=== PATIENT | male | born 1970 | race Caucasian/White ===

== ENCOUNTER → 2016-08-13 | Outpatient (CLI) | payer OTHER, BC ==
--- NOTE | 2016-08-13 09:58 | DIAGNOSTIC IMAGING REPORT ---
LEFT KNEE 1 OR 2 VIEWS ROUTINE, RIGHT KNEE 1 OR 2 VIEWS ROUTINE CLINICAL HISTORY: M25.569 Joint pain, [id number] COMPARISON STUDY: None. FINDINGS: No fracture or dislocation within the right left knee. No knee effusion. Soft tissues are unremarkable. Cartilage spaces are maintained for age. IMPRESSION: No significant abnormality within the right or left knee. Electronically signed by: Terry Love M.D. 08/13/2016 9:56 AM Dictated Date/Time: 08/13/2016 9:55 AM
--- NOTE | 2016-08-13 09:58 | DIAGNOSTIC IMAGING REPORT ---
LEFT SHOULDER MIN 2 VIEWS ROUTINE CLINICAL HISTORY: Left shoulder pain. COMPARISON: None FINDINGS: Alignment of the left shoulder is anatomic. There is no fracture or suspicious lesion. There is mild arthritis of the acromioclavicular joint. There is minimal arthritis of the glenohumeral joint. IMPRESSION: 1. No acute fracture or dislocation of the left shoulder. 2. 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 Electronically signed by: Eddi Falcon M.D. 08/13/2016 9:56 AM Dictated Date/Time: 08/13/2016 9:55 AM
--- NOTE | 2016-08-13 09:58 | DIAGNOSTIC IMAGING REPORT ---
LEFT KNEE 1 OR 2 VIEWS ROUTINE, RIGHT KNEE 1 OR 2 VIEWS ROUTINE CLINICAL HISTORY: M25.569 Joint pain, [id number] COMPARISON STUDY: None. FINDINGS: No fracture or dislocation within the right left knee. No knee effusion. Soft tissues are unremarkable. Cartilage spaces are maintained for age. IMPRESSION: No significant abnormality within the right or left knee. Electronically signed by: Terry Love M.D. 08/13/2016 9:56 AM Dictated Date/Time: 08/13/2016 9:55 AM
== END | disposition home or self-care (01) ==
LOC: C.RAD 09:11
PROVIDERS: ATTEND Nurse Practitioner
DX: M25.569 Pain in unspecified knee (principal); M25.512 Pain in left shoulder

== ENCOUNTER → 2017-09-02 | Outpatient (CLI) | payer OTHER, BC ==
[~2017-09-02] MED LIST: ONDA4TAB10 SL
[2017-09-02 17:30] LABS: BASO % 0.5 %; BASO ABS # 0.08 K/uL (0-0.2); EOS % 21.3 %; EOS ABS # 3.16 K/uL (0-0.5); HEMATOCRIT 47.3 % (42-52); HEMOGLOBIN 17.2 g/dL (14.0-18.0); IG# 0.22 K/uL (0.00-0.02); LYMPH ABS # 2.08 K/uL (1.2-3.4); MEAN CELL VOLUME 83.6 fL (80-100); MEAN CORPUSCULAR HEMOGLOBIN 30.4 pg (25-34); MEAN CORPUSCULAR HGB CONC 36.4 g/dl (32-36); MEAN PLATELET VOLUME 9.9 fL (7.4-10.4); MONO % 7.1 %; MONO ABS # 1.05 K/uL (0.11-0.59); NEUT % 55.6 %; NEUT ABS # 8.25 K/uL (1.4-6.5); PLATELET COUNT 202 K/uL (130-400); RED CELL DISTRIBUTION WIDTH CV 13.5 % (11.5-14.5); RED CELL DISTRIBUTION WIDTH SD 40.9 fL (36.4-46.3); WHITE BLOOD COUNT 14.84 K/uL (4.8-10.8)
[2017-09-02 17:47] LABS: ALBUMIN 3.9 gm/dl (3.4-5.0); ALT/SGPT 36 U/L (12-78); AST/SGOT 16 U/L (15-37); BLOOD UREA NITROGEN 20 mg/dl (7-18); CALCIUM 8.3 mg/dl (8.5-10.1); CARBON DIOXIDE 28 mmol/L (21-32); CREATININE 1.03 mg/dl (0.60-1.40); GLUCOSE 94 mg/dl (70-99); POTASSIUM 4.1 mmol/L (3.5-5.1); SODIUM 138 mmol/L (136-145)
[2017-09-02 17:50] LABS: ALKALINE PHOSPHATASE 90 U/L (45-117); TOTAL PROTEIN 7.6 gm/dl (6.4-8.2); TRANSFERRIN 211 mg/dl (200-360)
[2017-09-02 18:26] LABS: LIPASE 83 U/L (73-393)
== END | disposition home or self-care (01) ==
LOC: C.LAB1850 17:01
PROVIDERS: ATTEND Nurse Practitioner Adult Health
DX: R10.13 Epigastric pain (principal); K92.1 Melena

== ENCOUNTER 2017-09-03 05:07 | Emergency (ER) | payer OTHER, BC ==
[~2017-09-03] VITALS: Ht 185.4 cm; Wt 111.3 kg
[2017-09-03 05:08] VITALS: TEMP 36.7; Ht 185.4 cm; Wt 111.3 kg
[2017-09-03] MEDS ORDERED: ONDANSETRON INJ 2 MG/ML 2 ML VIAL IV STA (05:26)
[2017-09-03] MEDS ORDERED: PANTOprazole INJ 40 MG in SYRINGE 0 ML IV ONE (05:30)
[2017-09-03] MEDS ORDERED: SODIUM CHLORIDE 0.9% 1000ML 1,000 ML IV ONE ×2 (05:30)
[2017-09-03] MEDS ORDERED: MoRPHine SULFATE 4 MG/ML 1 ML CARP\\VIAL IV ONE (05:30)
[2017-09-03 05:53] LABS: BASO % 0.4 %; BASO ABS # 0.05 K/uL (0-0.2); EOS % 27.4 %; EOS ABS # 3.64 K/uL (0-0.5); HEMOGLOBIN 16.3 g/dL (14.0-18.0); IG# 0.12 K/uL (0.00-0.02); LYMPH % 15.1 %; LYMPH ABS # 2.01 K/uL (1.2-3.4); MEAN CELL VOLUME 83.5 fL (80-100); MEAN CORPUSCULAR HEMOGLOBIN 29.6 pg (25-34); MEAN CORPUSCULAR HGB CONC 35.4 g/dl (32-36); MEAN PLATELET VOLUME 9.5 fL (7.4-10.4); MONO % 7.4 %; MONO ABS # 0.98 K/uL (0.11-0.59); NEUT % 48.8 %; PLATELET COUNT 182 K/uL (130-400); RED CELL DISTRIBUTION WIDTH CV 13.5 % (11.5-14.5); RED CELL DISTRIBUTION WIDTH SD 41.3 fL (36.4-46.3)
[2017-09-03 06:11] LABS: ALBUMIN 3.5 gm/dl (3.4-5.0); CALCIUM 8.2 mg/dl (8.5-10.1); CREATININE 1.09 mg/dl (0.60-1.40); POTASSIUM 3.9 mmol/L (3.5-5.1)
[2017-09-03 06:14] LABS: TOTAL PROTEIN 7.1 gm/dl (6.4-8.2)
--- NOTE | 2017-09-03 06:57 | EMERGENCY ROOM VISIT NOTE ---
History First contact with patient: 05:13 Chief Complaint: ABDOMINAL PAIN Stated Complaint: UPSET STOMACH,DIARRHEA Nursing Triage Summary: c/o diarrhea since saturday seen by bri and had labs done. c/o contiued diarrhea. History of Present Illness The patient is a 47 year old male who presents to the Emergency Room with complaints of abdominal discomfort and diarrhea that began 4 days ago. The patient estimates having greater than 50 episodes of diarrhea over the past 4 days. He does not have recent travel history or antibiotic use. He does have abdominal cramping. Initially his stool was very dark, and there was concern that it may have included blood. The patient went to his primary care physician yesterday where blood work was obtained and did show an elevated white blood cell count but no significant anemia. The patient does take Aleve and Advil at times for some chronic back pain. He recently restarted a proton pump inhibitor. His abdominal discomfort is diffuse but not focal. No history of abdominal surgery. The patient has not had vomiting but has had some nausea. No chest pain, chest tightness, shortness of breath. No fever. He rates his current discomfort a 4/10. Review of Systems More than 10 systems were reviewed and otherwise negative with the exception of history of present illness. Past Medical/Surgical History Medical Problems: (1) No chronic past medical history Family History Hypertension Social History Smoking Status: Never Smoker Alcohol Use: occasionally Marital Status: Housing Status: lives with family Occupation Status: employed Current/Historical Medications No Active Prescriptions or Reported Meds Physical Exam Vital Signs Date Time Temp Pulse Resp B/P (MAP) Pulse Ox O2 Delivery O2 Flow Rate FiO2 09/03/17 06:04 66 18 138/93 97 Room Air 09/03/17 05:08 36.7 76 16 127/84 96 Room Air Physical Exam VITALS: Vitals are noted on the nurse's note and reviewed by myself. Vital signs stable. GENERAL: Well-developed, well-nourished, white male who appears mildly uncomfortable on presentation., who is in no acute distress and resting comfortably. Patient is cooperative with the examination. MOUTH: Mucous membranes dry. Tonsils are not enlarged. Pharynx without erythema, blood, or exudate. Uvula midline. Airway patent. NECK: Supple without nuchal rigidity. No lymphadenopathy. No thyromegaly. Cervical spine is nontender. HEART: Regular rate and rhythm without murmurs gallops or rubs. LUNGS: Clear to auscultation bilaterally without wheezes, rales or rhonchi. No retractions or accessory muscle use. ABDOMEN: Positive normal bowel sounds x 4. Soft with mild diffuse tenderness. No rebound or guarding. No CVA tenderness. MUSCULOSKELETAL: No muscle atrophy, erythema, or edema noted. Full range of motion in all extremities. NEURO: Patient was alert and oriented to person place and time. CN II through XII grossly intact. Medical Decision & Procedures Laboratory Results 09/03/17 05:40 Red Blood Count 5.51, Mean Corpuscular Volume 83.5, Mean Corpuscular Hemoglobin 29.6, Mean Corpuscular Hemoglobin Concent 35.4, Mean Platelet Volume 9.5, Neutrophils (%) (Auto) 48.8, Lymphocytes (%) (Auto) 15.1, Monocytes (%) (Auto) 7.4, Eosinophils (%) (Auto) 27.4, Basophils (%) (Auto) 0.4, Neutrophils # (Auto ) 6.50, Lymphocytes # (Auto) 2.01, Monocytes # (Auto) 0.98, Eosinophils # (Auto ) 3.64, Basophils # (Auto) 0.05 09/03/17 05:40 Test 09/03/17 05:40 White Blood Count 13.30 K/uL (4.8-10.8) Red Blood Count 5.51 M/uL (4.7-6.1) Hemoglobin 16.3 g/dL (14.0-18.0) Hematocrit 46.0 % (42-52) Mean Corpuscular Volume 83.5 fL (80-100) Mean Corpuscular Hemoglobin 29.6 pg (25-34) Mean Corpuscular Hemoglobin Concent 35.4 g/dl (32-36) Platelet Count 182 K/uL (130-400) Mean Platelet Volume 9.5 fL (7.4-10.4) Neutrophils (%) (Auto) 48.8 % Lymphocytes (%) (Auto) 15.1 % Monocytes (%) (Auto) 7.4 % Eosinophils (%) (Auto) 27.4 % Basophils (%) (Auto) 0.4 % Neutrophils # (Auto) 6.50 K/uL (1.4-6.5) Lymphocytes # (Auto) 2.01 K/uL (1.2-3.4) Monocytes # (Auto) 0.98 K/uL (0.11-0.59) Eosinophils # (Auto) 3.64 K/uL (0-0.5) Basophils # (Auto) 0.05 K/uL (0-0.2) RDW Standard Deviation 41.3 fL (36.4-46.3) RDW Coefficient of Variation 13.5 % (11.5-14.5) Immature Granulocyte % (Auto) 0.9 % Immature Granulocyte # (Auto) 0.12 K/uL (0.00-0.02) Anion Gap 5.0 mmol/L (3-11) Est Creatinine Clear Calc Drug Dose 108.4 ml/min Estimated GFR () 92.5 Estimated GFR (Non- 79.8 BUN/Creatinine Ratio 16.7 (10-20) Calcium Level 8.2 mg/dl (8.5-10.1) Magnesium Level 1.8 mg/dl (1.8-2.4) Total Bilirubin 0.5 mg/dl (0.2-1) Aspartate Amino Transf (AST/SGOT) 19 U/L (15-37) Alanine Aminotransferase (ALT/SGPT) 37 U/L (12-78) Alkaline Phosphatase 88 U/L (45-117) C-Reactive Protein 1.02 mg/dl (0-0.29) Total Protein 7.1 gm/dl (6.4-8.2) Albumin 3.5 gm/dl (3.4-5.0) Globulin 3.6 gm/dl (2.5-4.0) Albumin/Globulin Ratio 1.0 (0.9-2) Lipase 80 U/L (73-393) Medications Administered Medications (Trade) Dose Ordered Sig/Kirstie Route Start Time Stop Time Status Last Admin Dose Admin Sodium Chloride 1,000 ml @ 999 mls/hr Q1H1M ONCE IV 09/03/17 05:30 09/03/17 06:30 DC 09/03/17 05:41 999 MLS/HR Sodium Chloride 1,000 ml @ 999 mls/hr Q1H1M ONCE IV 09/03/17 05:30 09/03/17 06:30 DC 09/03/17 05:30 999 MLS/HR Ondansetron HCl (Zofran Inj) 4 mg NOW STAT IV 09/03/17 05:26 09/03/17 05:32 DC 09/03/17 05:48 4 MG Morphine Sulfate (MoRPHine SULFATE INJ) 4 mg NOW ONCE IV 09/03/17 05:30 09/03/17 05:32 DC 09/03/17 05:49 4 MG Pantoprazole Sodium 40 mg/ Syringe 10 ml @ 5 mls/min NOW ONCE IV 09/03/17 05:30 09/03/17 05:31 DC 09/03/17 06:02 5 MLS/MIN ED Course Physical exam and history were performed. Nursing notes, EMR, and Medication List were personally reviewed. Patient appears to have generalized abdominal discomfort with diarrhea for the past several days. Clinically he appears mildly dehydrated. He did have outpatient blood work performed about 12 hours ago that did reveal an elevated white blood cell count of greater than 14,000. IV access was established and labs are obtained. The patient was hydrated with 2 L normal saline. He was given 4 mg IV morphine and 4 mg IV Zofran. Stool studies were ordered. Because of the patient's discomfort, white blood cell count, and length of symptoms I did elect to order a CT scan with IV and oral contrast. The patient's blood work is as above and was reviewed. He does continue with an elevated white blood cell count of 13,000. He does not have a gross anemia or significant electrolyte imbalance. Lipase and transaminases are not diagnostic. The patient did feel improved after hydration and medication here in the department. The patient remained in stable condition until the time of shift change. The case was discussed with Ismael Wheatley PA-C at this time. Stool studies and CT scan is pending. At last check the patient remained in stable and comfortable condition. Please see Mr. Wheatley's dictation for further patient course, plan, and disposition. The chart was completed utilizing [employer] Speech Voice Recognition Software. Grammatical errors, random word insertions, pronoun errors, and incomplete sentences are an occasional consequence of this system due to software limitations, ambient noise, and hardware issues. Any formal questions or concerns about the content, text, or information contained within the body of this dictation should be directly addressed to the provider for clarification. . Medical Decision Differential diagnosis: Etiologies such as viral or foodborne illness, ischemic colitis, inflammatory bowel disease, appendicitis, diverticulitis, PUD, biliary pathology, UTI, pancreatitis, obstruction, mesenteric ischemia, aortic pathology, infections, renal colic, as well as others were entertained. Impression Primary Impression: Generalized abdominal pain Additional Impression: Diarrhea Departure Information Prescriptions No Active Prescriptions or Reported Meds Referrals Luis Mckay M.D. (PCP) Patient Instructions [facility] Problem Qualifiers
--- NOTE | 2017-09-03 07:12 | EMERGENCY ROOM VISIT NOTE ---
History First contact with patient: 06:57 Chief Complaint: ABDOMINAL PAIN Stated Complaint: UPSET STOMACH,DIARRHEA Nursing Triage Summary: c/o diarrhea since saturday seen by saturday and had labs done. c/o contiued diarrhea. History of Present Illness Case was signed out to me at shift change, 0700 hrs. on September 03, 2017. Please refer to Justin Palomares PA-C note for the patient's initial evaluation to include history, review of systems, physical examination and MDM to the time of sign out. Review of Systems Case was signed out to me at shift change, 0700 hrs. on September 03, 2017. Please refer to Justin Palomares PA-C note for the patient's initial evaluation to include history, review of systems, physical examination and MDM to the time of sign out. Past Medical/Surgical History Medical Problems: (1) No chronic past medical history Family History Hypertension Social History Smoking Status: Never Smoker Alcohol Use: occasionally Marital Status: Housing Status: lives with family Occupation Status: employed Current/Historical Medications Scheduled Ondasetron Odt (Zofran Odt), 4 MG SL Q6H Allergies Coded Allergies: Penicillins (Unverified Allergy, Intermediate, RASH, 09/03/17) Amoxicillin (Verified Allergy, Unknown, unknown, 09/03/17) Clavulanic Acid (Verified Allergy, Unknown, unknown, 09/03/17) Uncoded Allergies: DUST & MOLD (Allergy, Intermediate, SINUS CONGESTION, ITCHY EYES, 11/01/13) Physical Exam Vital Signs Date Time Temp Pulse Resp B/P (MAP) Pulse Ox O2 Delivery O2 Flow Rate FiO2 09/03/17 09:52 61 137/84 96 Room Air 09/03/17 08:31 57 113/69 95 Room Air 09/03/17 06:04 66 18 138/93 97 Room Air 09/03/17 05:08 36.7 76 16 127/84 96 Room Air Physical Exam Case was signed out to me at shift change, 0700 hrs. on September 03, 2017. Please refer to Justin Palomares PA-C note for the patient's initial evaluation to include history, review of systems, physical examination and MDM to the time of sign out. Medical Decision & Procedures ER Provider Diagnostic Interpretation: CT OF THE ABDOMEN AND PELVIS WITH CONTRAST CLINICAL HISTORY: Abdominal pain and diarrhea. COMPARISON STUDY: CT of the abdomen and pelvis January 23, 2015. TECHNIQUE: Following IV administration of 94 mL of Optiray-320, axial images of the abdomen and pelvis were obtained from the lung bases to the proximal femurs. Images were reviewed in the axial, sagittal, and coronal planes. IV contrast was administered without complication. A dose lowering technique was utilized adhering to the principles of ALARA. Oral contrast was administered. CT DOSE: 824.55 mGy.cm FINDINGS: Lung bases are clear. The liver, spleen, adrenal glands, right kidney and pancreas are normal. A 1.7 cm cyst within the upper pole the left kidney is noted. There is no hydronephrosis or [place] ureter. The appendix is normal. There is no evidence for a bowel obstruction. There are scattered colonic diverticula without evidence for acute diverticulitis. Note is made of mild mesenteric infiltration associated with several left mid abdominal small bowel loops. There may be mild small bowel wall thickening. A few prominent mesenteric lymph nodes may be reactive. There is no free air or abscess. A fat-containing left inguinal hernia is noted. There are no suspicious osseous lesions. IMPRESSION: 1. Mild mesenteric infiltration associated with several left mid abdominal small bowel loops with possible mild small bowel wall thickening. The findings represent a nonspecific enteritis which is likely infectious in etiology. No free air or abscess. 2. No bowel obstruction. Normal appendix. Electronically signed by: Eddi Falcon M.D. 09/03/2017 9:05 AM Dictated Date/Time: 09/03/2017 8:51 AM Laboratory Results 09/03/17 05:40 Red Blood Count 5.51, Mean Corpuscular Volume 83.5, Mean Corpuscular Hemoglobin 29.6, Mean Corpuscular Hemoglobin Concent 35.4, Mean Platelet Volume 9.5, Neutrophils (%) (Auto) 48.8, Lymphocytes (%) (Auto) 15.1, Monocytes (%) (Auto) 7.4, Eosinophils (%) (Auto) 27.4, Basophils (%) (Auto) 0.4, Neutrophils # (Auto ) 6.50, Lymphocytes # (Auto) 2.01, Monocytes # (Auto) 0.98, Eosinophils # (Auto ) 3.64, Basophils # (Auto) 0.05 09/03/17 05:40 Test 09/03/17 05:40 09/03/17 06:26 09/03/17 06:50 09/03/17 10:10 White Blood Count 13.30 K/uL (4.8-10.8) Red Blood Count 5.51 M/uL (4.7-6.1) Hemoglobin 16.3 g/dL (14.0-18.0) Hematocrit 46.0 % (42-52) Mean Corpuscular Volume 83.5 fL (80-100) Mean Corpuscular Hemoglobin 29.6 pg (25-34) Mean Corpuscular Hemoglobin Concent 35.4 g/dl (32-36) Platelet Count 182 K/uL (130-400) Mean Platelet Volume 9.5 fL (7.4-10.4) Neutrophils (%) (Auto) 48.8 % Lymphocytes (%) (Auto) 15.1 % Monocytes (%) (Auto) 7.4 % Eosinophils (%) (Auto) 27.4 % Basophils (%) (Auto) 0.4 % Neutrophils # (Auto) 6.50 K/uL (1.4-6.5) Lymphocytes # (Auto) 2.01 K/uL (1.2-3.4) Monocytes # (Auto) 0.98 K/uL (0.11-0.59) Eosinophils # (Auto) 3.64 K/uL (0-0.5) Basophils # (Auto) 0.05 K/uL (0-0.2) RDW Standard Deviation 41.3 fL (36.4-46.3) RDW Coefficient of Variation 13.5 % (11.5-14.5) Immature Granulocyte % (Auto) 0.9 % Immature Granulocyte # (Auto) 0.12 K/uL (0.00-0.02) Erythrocyte Sedimentation Rate 8 mm/hr (0-14) Anion Gap 5.0 mmol/L (3-11) Est Creatinine Clear Calc Drug Dose 108.4 ml/min Estimated GFR () 92.5 Estimated GFR (Non- 79.8 BUN/Creatinine Ratio 16.7 (10-20) Calcium Level 8.2 mg/dl (8.5-10.1) Magnesium Level 1.8 mg/dl (1.8-2.4) Total Bilirubin 0.5 mg/dl (0.2-1) Aspartate Amino Transf (AST/SGOT) 19 U/L (15-37) Alanine Aminotransferase (ALT/SGPT) 37 U/L (12-78) Alkaline Phosphatase 88 U/L (45-117) C-Reactive Protein 1.02 mg/dl (0-0.29) Total Protein 7.1 gm/dl (6.4-8.2) Albumin 3.5 gm/dl (3.4-5.0) Globulin 3.6 gm/dl (2.5-4.0) Albumin/Globulin Ratio 1.0 (0.9-2) Lipase 80 U/L (73-393) Bedside Lactic Acid Venous 0.72 mmol/L (0.90-1.70) Urine Color DK YELLOW Urine Appearance CLEAR (CLEAR) Urine pH 5.0 (4.5-7.5) Urine Specific [place] 1.028 (1.000-1.030) Urine Protein NEG (NEG) Urine Glucose (UA) NEG (NEG) Urine Ketones NEG (NEG) Urine Occult Blood NEG (NEG) Urine Nitrite NEG (NEG) Urine Bilirubin NEG (NEG) Urine Urobilinogen NEG (NEG) Urine Leukocyte Esterase NEG (NEG) Date/Time Source Procedure Growth Status 09/03/17 10:10 Stool C.difficile Toxin B Gene (PCR) - Final No C. difficile toxin B gene detected Complete Medications Administered Medications (Trade) Dose Ordered Sig/Kirstie Route Start Time Stop Time Status Last Admin Dose Admin Sodium Chloride 1,000 ml @ 999 mls/hr Q1H1M ONCE IV 09/03/17 05:30 09/03/17 06:30 DC 09/03/17 05:41 999 MLS/HR Sodium Chloride 1,000 ml @ 999 mls/hr Q1H1M ONCE IV 09/03/17 05:30 09/03/17 06:30 DC 09/03/17 05:30 999 MLS/HR Ondansetron HCl (Zofran Inj) 4 mg NOW STAT IV 09/03/17 05:26 09/03/17 05:32 DC 09/03/17 05:48 4 MG Morphine Sulfate (MoRPHine SULFATE INJ) 4 mg NOW ONCE IV 09/03/17 05:30 09/03/17 05:32 DC 09/03/17 05:49 4 MG Pantoprazole Sodium 40 mg/ Syringe 10 ml @ 5 mls/min NOW ONCE IV 09/03/17 05:30 09/03/17 05:31 DC 09/03/17 06:02 5 MLS/MIN Medical Decision Patient was seen and evaluated as above he presents to us today with 4 days of diarrhea and was unable to give a stool sample for quite some time. Case was signed out to me pending CT of the abdomen and pelvis. He was reevaluated and was resting comfortably. He declined any further pain medication. His nausea subsided. CT scan was obtained of the abdomen and pelvis and there is suggestion of enteritis. He was given food here in an attempt to produce stool sample. This suggests Mild mesenteric infiltration associated with several left mid abdominal small bowel loops with possible mild small bowel wall thickening and these findings represent a nonspecific enteritis which is likely infectious in etiology. Stool culture pending. Patient did have some difficulty providing stool sample. He was able to finally provide sample and no C. difficile was found. Stool culture pending. CBC reveals leukocytosis of 13.3. No anemia. Metabolic panel reveals no evidence of kidney or liver failure. Patient's lactic acid is not elevated. CRP slightly elevated. Urine negative. Stool was slightly heme positive however I favor this to likely be from the enteritis. He is to observe conservative management and we will await cultures. He was feeling well. He was able tolerate p.o. fluids and food. He is to follow with the family doctor or return with worsening. He will be given Zofran for nausea. The patient was educated upon management, had questions answered prior to discharge, and was discharged home in good condition. Case was discussed with the attending physician. In the evaluation and treatment of this patient the following differential diagnoses were entertained: Appendicitis, diverticulitis, colitis, mesenteric ischemia, among others. Impression Primary Impression: Generalized abdominal pain Additional Impression: Diarrhea Departure Information Dispostion Home / Self-Care Condition GOOD Prescriptions Ondasetron Odt (ZOFRAN ODT) 4 Mg Tab 4 MG SL Q6H for Nausea, #12 TAB Prov: Ismael Wheatley PA-C 09/03/17 Referrals Luis Mckay M.D. (PCP) Patient Instructions ED Diet [place], [facility] Additional Instructions You have been treated in the Emergency Department your Abdominal Pain. Laboratory results and imaging studies have ruled out any emergent causes for your abdominal pain which would warrant admission or surgery. You have been prescribed Zofran to be used for any nausea or vomiting. Take as prescribed. For pain control, you can use the following [id number] medicines (if >12 yo): - Regular strength (325mg/tab) Tylenol (acetaminophen) 2 tabs every 4-6 hours as needed. Do not exceed 12 tablets in a 24 hour period. Avoid taking more than 3 grams (3000 mg) of Tylenol per day. This includes any other sources of acetaminophen you may take on a regular basis. - Regular strength (200 mg/tab) Advil (ibuprofen) 1-2 tabs every 4-6 hours as needed. Do not exceed a dose of 3200 mg per day. Drink plenty of water and stay well hydrated. As with any trip to the Emergency Department, you should follow-up with your Primary Care Provider from today's visit. Return to the emergency department if your symptoms persist despite treatment plan outlined above or if the following symptoms occur: increased fevers, chills , worsening nausea/vomiting, blood in your stool or urine. Please call back here in 2 days to check on your stool culture results. It is [phone]. CT OF THE ABDOMEN AND PELVIS WITH CONTRAST CLINICAL HISTORY: Abdominal pain and diarrhea. COMPARISON STUDY: CT of the abdomen and pelvis January 23, 2015. TECHNIQUE: Following IV administration of 94 mL of Optiray-320, axial images of the abdomen and pelvis were obtained from the lung bases to the proximal femurs. Images were reviewed in the axial, sagittal, and coronal planes. IV contrast was administered without complication. A dose lowering technique was utilized adhering to the principles of ALARA. Oral contrast was administered. CT DOSE: 824.55 mGy.cm FINDINGS: Lung bases are clear. The liver, spleen, adrenal glands, right kidney and pancreas are normal. A 1.7 cm cyst within the upper pole the left kidney is noted. There is no hydronephrosis or [place] ureter. The appendix is normal. There is no evidence for a bowel obstruction. There are scattered colonic diverticula without evidence for acute diverticulitis. Note is made of mild mesenteric infiltration associated with several left mid abdominal small bowel loops. There may be mild small bowel wall thickening. A few prominent mesenteric lymph nodes may be reactive. There is no free air or abscess. A fat-containing left inguinal hernia is noted. There are no suspicious osseous lesions. IMPRESSION: 1. Mild mesenteric infiltration associated with several left mid abdominal small bowel loops with possible mild small bowel wall thickening. The findings represent a nonspecific enteritis which is likely infectious in etiology. No free air or abscess. 2. No bowel obstruction. Normal appendix. Problem Qualifiers
--- NOTE | 2017-09-03 09:07 | DIAGNOSTIC IMAGING REPORT ---
CT OF THE ABDOMEN AND PELVIS WITH CONTRAST CLINICAL HISTORY: Abdominal pain and diarrhea. COMPARISON STUDY: CT of the abdomen and pelvis January 23, 2015. TECHNIQUE: Following IV administration of 94 mL of Optiray-320, axial images of the abdomen and pelvis were obtained from the lung bases to the proximal femurs. Images were reviewed in the axial, sagittal, and coronal planes. IV contrast was administered without complication. A dose lowering technique was utilized adhering to the principles of ALARA. Oral contrast was administered. CT DOSE: 824.55 mGy.cm FINDINGS: Lung bases are clear. The liver, spleen, adrenal glands, right kidney and pancreas are normal. A 1.7 cm cyst within the upper pole the left kidney is noted. There is no hydronephrosis or [place] ureter. The appendix is normal. There is no evidence for a bowel obstruction. There are scattered colonic diverticula without evidence for acute diverticulitis. Note is made of mild mesenteric infiltration associated with several left mid abdominal small bowel loops. There may be mild small bowel wall thickening. A few prominent mesenteric lymph nodes may be reactive. There is no free air or abscess. A fat-containing left inguinal hernia is noted. There are no suspicious osseous lesions. IMPRESSION: 1. Mild mesenteric infiltration associated with several left mid abdominal small bowel loops with possible mild small bowel wall thickening. The findings represent a nonspecific enteritis which is likely infectious in etiology. No free air or abscess. 2. No bowel obstruction. Normal appendix. Electronically signed by: Eddi Falcon M.D. 09/03/2017 9:05 AM Dictated Date/Time: 09/03/2017 8:51 AM
[2017-09-03 09:52] VITALS: BP 137/84; PULSE 61; O2SAT 96
[2017-09-03] MEDS ORDERED: ONDA4TAB10 SL (10:07)
== END 2017-09-03 10:22 | disposition home or self-care (01) ==
LOC: C.EDB 05:08
DX: R19.7 Diarrhea, unspecified (principal); Z88.0 Allergy status to penicillin; Z88.1 Allergy status to other antibiotic agents; Z91.048 Other nonmedicinal substance allergy status

== ENCOUNTER → 2017-09-09 | Outpatient (CLI) | payer OTHER, BC ==
[2017-09-09 16:43] LABS: HEMATOCRIT 43.2 % (42-52); HEMOGLOBIN 14.9 g/dL (14.0-18.0); MEAN CORPUSCULAR HGB CONC 34.5 g/dl (32-36); MEAN PLATELET VOLUME 10.4 fL (7.4-10.4); PLATELET COUNT 169 K/uL (130-400); RED CELL DISTRIBUTION WIDTH CV 13.6 % (11.5-14.5); RED CELL DISTRIBUTION WIDTH SD 41.6 fL (36.4-46.3); WHITE BLOOD COUNT 7.22 K/uL (4.8-10.8)
== END | disposition home or self-care (01) ==
LOC: C.LABBFT 12:05
PROVIDERS: ATTEND Nurse Practitioner Adult Health
DX: K52.9 Noninfective gastroenteritis and colitis, unspecified (principal); D72.829 Elevated white blood cell count, unspecified

== ENCOUNTER → 2017-09-17 | Day surgery (SDC) | payer OTHER, BC ==
[2017-09-12 09:40] VITALS: Ht 185.4 cm; Wt 109.1 kg
[~2017-09-17] VITALS: Ht 185.4 cm; Wt 109.1 kg
[~2017-09-17] MED LIST changes: +ATROPINE SULFATE 0.1 MG/ML 5ML SYR IV PRN; +CPR/500 PO; +EpHEDrine SULFATE INJ 50 MG/ML AMP IV PRN; +FENTANYL CITRATE INJ 50 MCG/1 ML 2 ML VIAL ONE; +LIDOCAINE HCL 2% 2 ML VIAL (20MG/ML) ONE; +MIDAZOLAM HCL 1 MG/ML 2ML VIAL ONE; +MISCCAP80 PO; -ONDA4TAB10 SL; +PANT40TA PO; +PROPOFOL IV EMULSION 10 MG/ML 20 ML VIAL ONE; +SODIUM CHLORIDE 0.9% 500ML 500 ML IV ONE
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
[2017-09-17 12:21] VITALS: TEMP 36.6
--- NOTE | 2017-09-17 13:30 | Discharge Instructions ---
Endoscopy Patient Instructions Date / Procedure(s) Performed September 17, 2017. EGD Allergy Information Coded Allergies: Penicillins (Unverified Allergy, Intermediate, RASH, 09/17/17) Amoxicillin (Verified Allergy, Unknown, unknown, 09/17/17) Clavulanic Acid (Verified Allergy, Unknown, unknown, 09/17/17) Uncoded Allergies: DUST & MOLD (Allergy, Intermediate, SINUS CONGESTION, ITCHY EYES, 11/01/13) Discharge Date / Findings September 17, 2017. Gastritis s/p biopsies Medication Instructions OK to resume all medications today as prescribed Reported Home Medications Medications Dose Route/Sig Max Daily Dose Days Date Category Probiotic (Probiotic Product) 1 Cap Cap 1 Cap PO BID 09/12/17 Reported Protonix (Pantoprazole Sodium) 40 Mg Tab 40 Mg PO BID 09/12/17 Reported Provider Instructions Activity Restrictions - No exercising or heavy lifting for 24 hours. - Do not drink alcohol the day of the procedure. - Do not drive a car or operate machinery until the day after the procedure. - Do not make any important decisions or sign important papers in 24 hours after the procedure. Following Day: - Return to full activity which may include returning to work/school. Diet Start your diet with liquids and light foods (jello, soup, juice, toast). Then eat your usual diet if not nauseated. Treatment For Common After Affects For mild abdominal pain, bloating, or excessive gas: - Rest - Eat lightly - Lie on right side Follow-Up Information Follow-up with Dr. Luis Mckay as scheduled Anesthesia Information What You Should Know You have had a procedure that required some medicine to reduce anxiety and discomfort. This treatment is called moderate sedation. After receiving the treatment, you may be sleepy, but you will be able to breathe on your own. The effects of the treatment may last for several hours. Follow these instructions along with Activity/Diet recommendations noted above: * Do NOT do anything where dizziness or clumsiness would be dangerous. * Rest quietly at home today, then you can be up and about tomorrow. * Have a responsible person stay with you the rest of today. * You may have had an I.V. today. If so, you may take the dressing off later today. Recommendations Call your doctor if: * Trouble breathing * Continuous vomiting for more than 24 hours * Temperature above 101 degrees * Severe abdominal pain or bloating * Pain not relieved by pain medicine ordered * There is increased drainage or redness from any incision * A large amount of rectal bleeding greater than 2-3 tablespoons. (If you had a polyp/s removed or have hemorrhoids, a small amount of blood - from the rectum is to be expected.) * You have any unanswered questions or concerns. IN THE EVENT OF A SERIOUS EMERGENCY, GO TO THE NEAREST EMERGENCY ROOM Your discharge instructions were prepared by provider Mau Garcia. Patient Instructions Signature Page Tacho Oneill Patient (or Guardian) Signature/Date: I have read and understand the instructions given to me by my caregivers. Caregiver/RN/Doctor Signature/Date: The above-named patient and/or guardian has received patient instructions on this date. + Original Patient Signature Page (only) stays with chart. Please make copy for patient.
--- NOTE | 2017-09-17 13:32 | GI REPORT ---
Patient Name: Tacho Oneill Procedure Date: 09/17/2017 12:55 PM Date of : 1970 Admit Type: Outpatient Age: 47 Gender: Male Attending MD: Mau Garcia DO Procedure: Upper GI endoscopy Providers: Mau Garcia DO Referring MD: Yolette Wolff Indications: Epigastric abdominal pain, Melena, Diarrhea Medicines: Monitored Anesthesia Care Complications: No immediate complications. Estimated Blood Loss: Estimated blood loss: none. Procedure: Pre-Anesthesia Assessment: - Prior to the procedure, a History and Physical was performed, and patient medications and allergies were reviewed. The patient's tolerance of previous anesthesia was also reviewed. The risks and benefits of the procedure and the sedation options and risks were discussed with the patient. All questions were answered, and informed consent was obtained. Prior Anticoagulants: The patient has taken no previous anticoagulant or antiplatelet agents. ASA Grade Assessment: II - A patient with mild systemic disease. After reviewing the risks and benefits, the patient was deemed in satisfactory condition to undergo the procedure. After obtaining informed consent, the endoscope was passed under direct vision. Throughout the procedure, the patient's blood pressure, pulse, and oxygen saturations were monitored continuously. The Scope was introduced through the mouth, and advanced to the second part of duodenum. The upper GI endoscopy was accomplished without difficulty. The patient tolerated the procedure well. Findings: The esophagus was normal. Localized moderate inflammation characterized by erythema was found in the gastric antrum. Biopsies were taken with a cold forceps for histology. The examined duodenum was normal. Impression: - Normal esophagus. - Gastritis. Biopsied. - Normal examined duodenum. Recommendation: - Resume previous diet. - Continue present medications. - Await pathology results. - Return to primary care physician as previously scheduled. Mau Garcia DO 09/17/2017 1:32:36 PM This report has been signed electronically. Note Initiated On: 09/17/2017 12:55 PM Number of Addenda: 0 I attest to the content of the Intraoperative Record and orders documented therein, exceptions below {[id number]}
--- NOTE | 2017-09-17 13:44 | Anesthesiology Progress Note ---
Anesthesia Post Op Note Date & Time September 17, 2017 at 13:43 Vital Signs Pain Intensity: 0 Vital Signs Past 12 Hours Date Time Temp Pulse Resp B/P (MAP) Pulse Ox O2 Delivery O2 Flow Rate FiO2 09/17/17 13:34 66 16 120/87 (98) 97 Room Air 09/17/17 13:19 71 16 112/74 (87) 94 Room Air 09/17/17 12:21 36.6 66 16 111/81 (91) 96 Room Air Notes Mental Status: alert / awake / arousable, participated in evaluation Pt Amnestic to Procedure: Yes Nausea / Vomiting: adequately controlled Pain: adequately controlled Airway Patency, RR, SpO2: stable & adequate BP & HR: stable & adequate Hydration State: stable & adequate Anesthetic Complications: no major complications apparent
[2017-09-17 13:49] VITALS: BP 119/87; PULSE 60; O2SAT 98
== END | disposition home or self-care (01) ==
LOC: C.GI 12:04
PROVIDERS: ATTEND Internal Medicine
DX: K92.1 Melena (principal); K29.50 Unspecified chronic gastritis without bleeding; R10.9 Unspecified abdominal pain; R19.7 Diarrhea, unspecified; K21.9 Gastro-esophageal reflux disease without esophagitis; Z88.0 Allergy status to penicillin; Z88.1 Allergy status to other antibiotic agents; Z88.8 Allergy status to other drugs, medicaments and biological substances

== ENCOUNTER 2022-05-06 15:30 | Observation (INO) ==
[2022-05-06] MEDS ORDERED: ONDANSETRON INJ 2 MG/ML 2 ML VIAL IV STA (15:37)
[2022-05-06] MEDS ORDERED: SODIUM CHLORIDE 0.9% 1000ML 500 ML IV ONE (15:37)
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
[2022-05-06 16:28] LABS: Basophils # (auto) 0.05 K/uL (0-0.2); Basophils % (auto) 0.5 %; Eosinophils # (auto) 0.15 K/uL (0-0.50); Eosinophils % (auto) 1.4 %; Hematocrit (blood only) 44.6 % (40.1-51.0); Hemoglobin 15.3 g/dl (14.0-18.0); Immature Granulocytes # (auto) 0.11 K/uL (0.00-0.02); Immature Granulocytes % (auto) 1.1 %; Lymphocytes # (auto) 1.86 K/uL (1.2-3.4); Lymphocytes % (auto) 17.9 %; Mean Corpuscular Hemoglobin 29.7 pg (25.0-34.0); Mean Corpuscular Hgb Conc 34.3 g/dL (32.0-36.0); Mean Corpuscular Volume 86.6 fL (80.0-100.0); Mean Platelet Volume 10.1 fL (9.4-12.4); Monocytes # (auto) 0.81 K/uL (0.24-0.82); Monocytes % (auto) 7.8 %; Neutrophils # (auto) 7.42 K/uL (1.4-6.5); Neutrophils % (auto) 71.3 %; Platelet Count 194 K/uL (130-400); RDW Coefficient of Variation 13.2 % (11.5-14.5); RDW Standard Deviation 41.1 fL (36.4-46.3); Red Blood Count 5.15 M/uL (4.63-6.08)
[2022-05-06 16:50] LABS: Albumin Globulin Ratio 1.4 (0.9-2); Albumin Level 4.3 gm/dl (3.4-5.0); BUN Creatinine Ratio 22.2 (10-20); Bilirubin,Total 0.4 mg/dl (0.2-1.0); Calcium 9.1 mg/dl (8.5-10.1); Creatinine Clr Calc Pharmacy 98.3 ml/min; Est GFR (Non-African American) 70.8 ml/min; Potassium 4.4 mmol/L (3.5-5.1); Total Protein 7.3 gm/dl (6.0-8.3)
[2022-05-06 16:54] LABS: Troponin I High Sensitivity 23.8 pg/ml (0-20)
[2022-05-06] MEDS ORDERED: ASPIRIN CHEW 324 MG PO STA (17:21)
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
[2022-05-06] MEDS ORDERED: ALUMINUM/MAGNESIUM SUSP 30 ML UDC PO PRN (20:53)
[2022-05-06] MEDS ORDERED: AZITHROMYCIN 250 MG TAB PO ONE (20:53)
[2022-05-06] MEDS ORDERED: NON-FORMULARY MEDICATION (Acetaminophen [Tylenol Arthritis Pain] 650 mg tablet extended re PO SCH (20:53)
[2022-05-06] MEDS ORDERED: hydrALAZINE HCL 20 MG/ML VIAL IV PRN (20:53)
[2022-05-06] MEDS ORDERED: ONDANSETRON INJ 2 MG/ML 2 ML VIAL IV PRN (20:53)
[2022-05-06] MEDS ORDERED: ACETAMINOPHEN 325 MG TAB PO PRN (20:53)
[2022-05-06] MEDS ORDERED: LORATADINE 10 MG TAB PO ONE (20:53)
[2022-05-06] MEDS ORDERED: COUGH DROP (SUGAR FREE) LOZ 24 LOZ/1 BOX BUCCAL STA (22:30)
[2022-05-06] MEDS ORDERED: MELATONIN 3 MG TAB PO PRN (22:30)
[2022-05-06] MEDS: FLUTICASONE PROPIONATE NA SPR 16 GM BTL SCH (22:48)
[2022-05-07 07:02] LABS: Hematocrit (blood only) 41.8 % (40.1-51.0); Hemoglobin 14.6 g/dl (14.0-18.0); Mean Corpuscular Hemoglobin 29.9 pg (25.0-34.0); Mean Corpuscular Hgb Conc 34.9 g/dL (32.0-36.0); Mean Corpuscular Volume 85.5 fL (80.0-100.0); Mean Platelet Volume 9.9 fL (9.4-12.4); Platelet Count 182 K/uL (130-400); RDW Coefficient of Variation 13.2 % (11.5-14.5); RDW Standard Deviation 40.7 fL (36.4-46.3); Red Blood Count 4.89 M/uL (4.63-6.08); White Blood Count 9.87 K/ul (4.8-10.8)
[2022-05-07 07:50] LABS: Calcium 8.4 mg/dl (8.5-10.1); Chol HDL Ratio 4.6 (0-5); Creatinine Clr Calc Pharmacy 130.5 ml/min; Est GFR (African American) 113.7 ml/min; Est GFR (Non-African American) 98.1 ml/min; Magnesium 1.9 mg/dl (1.7-2.4); Potassium 3.9 mmol/L (3.5-5.1)
[2022-05-07] MEDS: FLUTICASONE PROPIONATE NA SPR 16 GM BTL SCH (08:01)
[2022-05-07 08:10] LABS: Troponin I High Sensitivity 16.1 pg/ml (0-20)
[2022-05-07] MEDS ORDERED: ASPIRIN 81 MG ECTAB PO SCH (09:00)
[2022-05-07] MEDS ORDERED: CeleBREX 200 MG CAP PO SCH (09:00)
[2022-05-07] MEDS ORDERED: AZITHROMYCIN 250 MG TAB PO SCH (09:00)
[2022-05-07] MEDS ORDERED: LORATADINE 10 MG TAB PO SCH (09:00)
[2022-05-07] MEDS ORDERED: PANTOprazole 40 MG TAB PO SCH (09:00)
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
--- NOTE | 2022-05-07 13:15 | XCELERA ---
[id number]
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
--- NOTE | 2022-05-07 18:53 | Electrocardiogram Report ---
Test Reason : Blood Pressure : / mmHG Vent. Rate : 090 BPM Atrial Rate : 090 BPM P-R Int : 190 ms QRS Dur : 074 ms QT Int : 356 ms P-R-T Axes : 030 001 021 degrees QTc Int : 435 ms Normal sinus rhythm Minimal voltage criteria for LVH, may be normal variant Borderline ECG When compared with ECG of 23-JAN-2015 11:54, Vent. rate has increased BY 40 BPM Confirmed by Luis Leroy ([id number]) on 05/07/2022 6:52:54 PM Referred By: REFERRED SELF Confirmed By:Ger Leroy
--- NOTE | 2022-05-07 19:03 | Electrocardiogram Report ---
Test Reason : Blood Pressure : / mmHG Vent. Rate : 070 BPM Atrial Rate : 070 BPM P-R Int : 200 ms QRS Dur : 076 ms QT Int : 408 ms P-R-T Axes : 052 025 010 degrees QTc Int : 440 ms Normal sinus rhythm Normal ECG When compared with ECG of 06-MAY-2022 15:59, (unconfirmed) No significant change was found Confirmed by Luis Leroy ([id number] on 05/07/2022 7:02:29 PM Referred By: REFERRED SELF Confirmed By:Ger Leroy
== END 2022-05-07 14:46 | disposition home or self-care (01) ==
LOC: EDINP 15:30 → ED 15:30 → SUATTDRO 17:36 → 2N 23:14